=== PATIENT | male | born 1945 | race Caucasian/White ===

== ENCOUNTER 2016-06-30 17:10 | Emergency (ER) | payer MEDICARE ==
--- NOTE | 2016-06-30 19:18 | ED NURSING NOTES ---
Clinical Report - Nurses [facility] [place] [address] 06/30/2016 17:10 Patient: RENATA SOTO TRIAGE Triage time 17:19. Acuity: LEVEL 3. Alert. No acute distress. --17:29 Da Jules R.N. 17:18 06/30/16. BP: 138/92. HR: 98. RR: 20. O2 saturation: 92%. Temp: 98 F. Pain level now 03/24. --17:29 Da Jules R.N. Chief Complaint: (Back Pain, Leg Numbness, Urinary Incontinance). --19:39 Da Jules R.N. Weight: 99.7 kg estimated. Height/Length: 72 inches Estimated. BMI: 29.8. --17:28 Da Jules R.N. Medications AmLODIPine Besylate Oral 10 mg, daily. Gabapentin Oral 300 mg, 3x a day. Lisinopril Oral 40 mg, daily. Metoprolol Tartrate Oral 50 mg, 2 times daily. --17:27 Da Jules R.N. Allergies Acetaminophen. STEROIDS. --17:27 Da Jules R.N. History Arrived by EMS. Historian: patient. ( Patient with history of back pain and back surgery about a year ago. [facility] has back pain chronically and has no pain medicine. States he drinks Vodka now. [facility] had worsening back pain today. The EMT that brought him in states he thinks the patient needs more Vahe hours. Patient has very productive wet cough that he states he has had for over 1 year. 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 The patient has had a cough. SOCIAL HX: Former smoker. Alcohol use. History of drug use: marijuana. --17:29 Da Jules R.N. PHYSICAL ASSESSMENT GENERAL / NEURO / PSYCH: Alert. Oriented X 4. Appears in no acute distress. RESPIRATORY: Respirations not labored. Cough. SKIN: Skin is warm and dry. --17:29 Da Jules R.N. NURSING PROGRESS NOTES Patient gowned. Patient identifiers checked. Call light placed in reach. Side rails up. Bed placed in lowest position. --17:30 Da Jules R.N. ( Patient continues to complain of pain. States he can't feel his legs, but they hurt. Voided 300ml. Bladder scanned and patient has 240 ml in bladder). --18:17 Da Jules R.N. 18:36 06/30/2016 Site #1 started via IV in the left forearm with an 18g angiocath, with aseptic technique and good blood return; one attempt. Blood drawn: rainbow set. Labeled in the presence of the patient. Saline lock flushed with 10 mL saline. --19:01 Da Jules R.N. 18:52 06/30/2016 Started 125 mg of SOLU-MEDROL (MethylPREDNISolone Sodium Succ) IVPB in bag #1 20 mL; at 200 mL/hr over 5 minute(s) via site #1 --19:03 Da Jules R.N. 18:54 06/30/2016 Hydromorphone IVP 1 mg given over 2 minute(s) via site #1. --19:04 Da Jules R.N. 18:58 06/30/2016 Albuterol Neb TX Nebulizer 2 unit dose given. Given by the respiratory therapist. Allergies verified and confirmed 5 rights. --18:58 Geni Shen 19:04 06/30/2016 Hydromorphone IVP Response: symptoms are the same. --19:05 Da Jules R.N. 19:05 06/30/2016 SOLU-MEDROL IVPB Discontinued: completed. Total amount infused: 20 mL. --19:05 Da Jules R.N. 19:11 06/30/16. BP: 143/93. HR: 92. RR: 20. O2 saturation: 89%. Temp: 98.8 F. Pain level now 10/10. --19:13 Da Jules R.N. DISPOSITION / DISCHARGE Departure time: 19:30. Condition at departure: unchanged. Transferred to [facility]. Transported via ambulance by EMS and transport team. ( Report to [facility] Report to [facility] ER). Patient's personal items include, Clothes with patient. --19:31 Da Jules R.N. 19:34 06/30/16. BP: 145/92. HR: 90. RR: 20. O2 saturation: 92%. Temp: 98 F. Pain level now 03/24. --19:34 Da Jules R.N. Locked/Released at 06/30/2016 19:40 by Da Jules R.N.
--- NOTE | 2016-06-30 19:18 | ED ORDER SUMMARY ---
..... Patient: RENATA SOTO OrderSheet [facility] VisitID: [id number] [place] [address] 71y, M Registration Date/Time: 06/30/2016 ORDER SHEET Weight: 99.7 kg (estimated) Allergies: Acetaminophen, STEROIDS GENERAL ORDERS: CBC w Diff Urgent (18:20 06/30/2016 Josefa DIAS) (Ack 18:38 LTapper) (19:05 GMarshall R.N.) CMP Urgent (18:20 06/30/2016 Josefa DIAS) (Ack 18:38 LTapper) (19:05 GMarshall R.N.) UA-Culture if indicated Urgent (18:20 06/30/2016 Josefa DIAS) (Ack 18:38 LTapper) (19:05 GMarshall R.N.) MEDICATION ORDERS: Albuterol Neb Tx 5 mg (N) (18:06 06/30/2016 Josefa DIAS) (18:58 Jim) IV FLUIDS: Solu-MEDROL IV 125 mg (NOW) (18:06 06/30/2016 Josefa DIAS) (Ack 18:15 GMarshall R.N.) (19:03 GMarshall R.N.) HYDROmorphone IV 1 mg (HIGH ALERT MEDICATION, NOW) (19:03 06/30/2016 GMarshall R.N. verbal order read back to Josefa DIAS) (19:04 GMarshall R.N.) ORDER SHEET NOTES: [Electronically signed by Da Jules R.N. (19:40 06/30/2016)] [Electronically signed by Lauri Nichole MD (23:08 06/30/2016)] [Electronically locked/signed by Da Jules R.N. (19:40 06/30/2016)]
--- NOTE | 2016-06-30 19:18 | ED ORDER SUMMARY ---
..... Patient: RENATA SOTO OrderSheet [facility] VisitID: [id number] [place] [address] 71y, M Registration Date/Time: 06/30/2016 ORDER SHEET Weight: 99.7 kg (estimated) Allergies: Acetaminophen, STEROIDS GENERAL ORDERS: CBC w Diff Urgent (18:20 06/30/2016 Josefa DIAS) (Ack 18:38 LTapper) (19:05 GMarshall R.N.) CMP Urgent (18:20 06/30/2016 Josefa DIAS) (Ack 18:38 LTapper) (19:05 GMarshall R.N.) UA-Culture if indicated Urgent (18:20 06/30/2016 Josefa DIAS) (Ack 18:38 LTapper) (19:05 GMarshall R.N.) MEDICATION ORDERS: Albuterol Neb Tx 5 mg (N) (18:06 06/30/2016 Josefa DIAS) (18:58 Jim) IV FLUIDS: Solu-MEDROL IV 125 mg (NOW) (18:06 06/30/2016 Josefa DIAS) (Ack 18:15 GMarshall R.N.) (19:03 GMarshall R.N.) HYDROmorphone IV 1 mg (HIGH ALERT MEDICATION, NOW) (19:03 06/30/2016 GMarshall R.N. verbal order read back to Josefa DIAS) (19:04 GMarshall R.N.) ORDER SHEET NOTES: [Electronically signed by Da Jules R.N. (19:40 06/30/2016)] [Electronically signed by Lauri Nichole MD (23:08 06/30/2016)] [Electronically locked/signed by Da Jules R.N. (19:40 06/30/2016)]
--- NOTE | 2016-06-30 19:18 | ED CLINICAL REPORT ---
Clinical Report - Physicians/Mid Levels [facility] [address] [place] [address] 06/30/2016 17:10 Patient: [facility] [id number] Time Seen: 17:18. Arrived- By private vehicle. Historian- patient. HISTORY OF PRESENT ILLNESS Chief Complaint: LEGS NUMB. It is described as being moderate in degree (Pain is unchanged numbness is new.) and in the area of the lower lumbar spine. The quality is noted to be "pain" and similar to prior episodes. Onset was last night Couldn't get out of bed. Legs are numb. At 0100 today. Noticed it at 10 am. Incontinent of urine. Low back into both legs to knees. Pain is unchanged but numbness and weakness, inability to transfer and urinary incontinence are new. Bladder dysfunction. No bowel dysfunction or motor loss. Sensory loss. Additional history - Best usual function is transfer to wheel chair. Patient denies an injury. No other injury. Similar symptoms previously: None. REVIEW OF SYSTEMS No fever, chills, headache, sore throat or cough. No difficulty breathing, chest pain, abdominal pain, nausea or vomiting. No diarrhea. He has had difficulty with urination (incontinent of urine but not stool). All systems otherwise negative, except as recorded above. PAST HISTORY [place]/None Substance Abuse. Normal Exam. Medication Refill. Hip pain. Back Pain. Hypertension Surgeries: Lumbar - laminectomy Cervical fusion R Hip total hip x 3 for dislocation T&A. 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 ADDITIONAL NOTES The nursing notes have been reviewed. PHYSICAL EXAM Vital Signs: 06/30/2016 17:18 BP: 138/92. HR: 98. RR: 20. O2 saturation: 92%. Temp: 98 F. Appearance: Alert. Patient in mild distress. HEENT: Normal external inspection. Eyes: Pupils equal, round and reactive to light. Neck: Normal inspection. CVS: Heart sounds normal. Respiratory: Mildly decreased air movement bilaterally. No bilaterally decreased air movement diffusely. Moderate bilateral wheezes diffusely. No accessory muscle use. Abdomen: Normal inspection. Soft and nontender. Back: No tenderness. Extremities: Extremities nontender. Neuro: The patient has had weakness of the right leg (moderate), right foot (mild), left leg (moderate) and left foot (mild). Sensory deficit present. Altered position sense in the right and left leg. Reflex exam: right patellar 1+, left patellar 1+, right Achilles 0 and left Achilles 0. No Babinski reflex. LABS, X-RAYS, AND EKG X-Rays: The X-rays were independently viewed by me. PROGRESS AND PROCEDURES Course of Care: 17:59 06/30/16. Call out to the ED at [place]. Needs emergent MRI to rule out neurosurgical emergency. Will attempt to transfer. 18:20 06/30/16. Spoke with Dr Da Real [facility] ED and Hospital Backend Tester Elizabeth KIMBALL who will accept the patient in ED to ED transfer. I cannot perform MRI here. 23:08. Critical care performed (45 minutes). Time includes: direct patient care, patient reassessment, interpretation of data, review of patient's medical records, medical consultation and documentation of patient care- see progress notes. Disposition: Transferred. CLINICAL IMPRESSION ACUTE BILATERAL LEG NUMBNESS/WEAKNESS WITH URINARY INCONTINENCE BACK PAIN. (Electronically signed by Lauri Nichole MD 06/30/2016 23:08) Addenda for RENATA SOTO VisitID: [id number] Date: 06/30/2016 06/30/2016 23:06 Faxed a revised chart to the [facility] ED. The initial chart incorrectly identified a fall and rib fractures. (Electronically signed by Lauri Nichole MD - 06/30/2016 23:06)
--- NOTE | 2016-06-30 19:18 | ED NURSING NOTES ---
Clinical Report - Nurses [facility] [place] [address] 06/30/2016 17:10 Patient: RENATA SOTO TRIAGE Triage time 17:19. Acuity: LEVEL 3. Alert. No acute distress. --17:29 Da Jules R.N. 17:18 06/30/16. BP: 138/92. HR: 98. RR: 20. O2 saturation: 92%. Temp: 98 F. Pain level now 03/24. --17:29 Da Jules R.N. Chief Complaint: (Back Pain, Leg Numbness, Urinary Incontinance). --19:39 Da Jules R.N. Weight: 99.7 kg estimated. Height/Length: 72 inches Estimated. BMI: 29.8. --17:28 Da Jules R.N. Medications AmLODIPine Besylate Oral 10 mg, daily. Gabapentin Oral 300 mg, 3x a day. Lisinopril Oral 40 mg, daily. Metoprolol Tartrate Oral 50 mg, 2 times daily. --17:27 Da Jules R.N. Allergies Acetaminophen. STEROIDS. --17:27 Da Jules R.N. History Arrived by EMS. Historian: patient. ( Patient with history of back pain and back surgery about a year ago. [facility] has back pain chronically and has no pain medicine. States he drinks Vodka now. [facility] had worsening back pain today. The EMT that brought him in states he thinks the patient needs more Vahe hours. Patient has very productive wet cough that he states he has had for over 1 year. 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 The patient has had a cough. SOCIAL HX: Former smoker. Alcohol use. History of drug use: marijuana. --17:29 Da Jules R.N. PHYSICAL ASSESSMENT GENERAL / NEURO / PSYCH: Alert. Oriented X 4. Appears in no acute distress. RESPIRATORY: Respirations not labored. Cough. SKIN: Skin is warm and dry. --17:29 Da Jules R.N. NURSING PROGRESS NOTES Patient gowned. Patient identifiers checked. Call light placed in reach. Side rails up. Bed placed in lowest position. --17:30 Da Jules R.N. ( Patient continues to complain of pain. States he can't feel his legs, but they hurt. Voided 300ml. Bladder scanned and patient has 240 ml in bladder). --18:17 Da Jules R.N. 18:36 06/30/2016 Site #1 started via IV in the left forearm with an 18g angiocath, with aseptic technique and good blood return; one attempt. Blood drawn: rainbow set. Labeled in the presence of the patient. Saline lock flushed with 10 mL saline. --19:01 Da Jules R.N. 18:52 06/30/2016 Started 125 mg of SOLU-MEDROL (MethylPREDNISolone Sodium Succ) IVPB in bag #1 20 mL; at 200 mL/hr over 5 minute(s) via site #1 --19:03 Da Jules R.N. 18:54 06/30/2016 Hydromorphone IVP 1 mg given over 2 minute(s) via site #1. --19:04 Da Jules R.N. 18:58 06/30/2016 Albuterol Neb TX Nebulizer 2 unit dose given. Given by the respiratory therapist. Allergies verified and confirmed 5 rights. --18:58 Geni Shen 19:04 06/30/2016 Hydromorphone IVP Response: symptoms are the same. --19:05 Da Jules R.N. 19:05 06/30/2016 SOLU-MEDROL IVPB Discontinued: completed. Total amount infused: 20 mL. --19:05 Da Jules R.N. 19:11 06/30/16. BP: 143/93. HR: 92. RR: 20. O2 saturation: 89%. Temp: 98.8 F. Pain level now 10/10. --19:13 Da Jules R.N. DISPOSITION / DISCHARGE Departure time: 19:30. Condition at departure: unchanged. Transferred to [facility]. Transported via ambulance by EMS and transport team. ( Report to [facility] Report to [facility] ER). Patient's personal items include, Clothes with patient. --19:31 Da Jules R.N. 19:34 06/30/16. BP: 145/92. HR: 90. RR: 20. O2 saturation: 92%. Temp: 98 F. Pain level now 03/24. --19:34 Da Jules R.N. Locked/Released at 06/30/2016 19:40 by Da Jules R.N.
--- NOTE | 2016-06-30 19:18 | ED CLINICAL REPORT ---
Clinical Report - Physicians/Mid Levels [facility] [address] [place] [address] 06/30/2016 17:10 [id number] Time Seen: 17:18. Arrived- By private vehicle. Historian- patient. HISTORY OF PRESENT ILLNESS Chief Complaint: LEGS NUMB. It is described as being moderate in degree (Pain is unchanged numbness is new.) and in the area of the lower lumbar spine. The quality is noted to be "pain" and similar to prior episodes. Onset was last night Couldn't get out of bed. Legs are numb. At 0100 today. Noticed it at 10 am. Incontinent of urine. Low back into both legs to knees. Pain is unchanged but numbness and weakness, inability to transfer and urinary incontinence are new. Bladder dysfunction. No bowel dysfunction or motor loss. Sensory loss. Additional history - Best usual function is transfer to wheel chair. Patient denies an injury. No other injury. Similar symptoms previously: None. REVIEW OF SYSTEMS No fever, chills, headache, sore throat or cough. No difficulty breathing, chest pain, abdominal pain, nausea or vomiting. No diarrhea. He has had difficulty with urination (incontinent of urine but not stool). All systems otherwise negative, except as recorded above. PAST HISTORY [place]/None Substance Abuse. Normal Exam. Medication Refill. Hip pain. Back Pain. Hypertension Surgeries: Lumbar - laminectomy Cervical fusion R Hip total hip x 3 for dislocation T&A. 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 ADDITIONAL NOTES The nursing notes have been reviewed. PHYSICAL EXAM Vital Signs: 06/30/2016 17:18 BP: 138/92. HR: 98. RR: 20. O2 saturation: 92%. Temp: 98 F. Appearance: Alert. Patient in mild distress. HEENT: Normal external inspection. Eyes: Pupils equal, round and reactive to light. Neck: Normal inspection. CVS: Heart sounds normal. Respiratory: Mildly decreased air movement bilaterally. No bilaterally decreased air movement diffusely. Moderate bilateral wheezes diffusely. No accessory muscle use. Abdomen: Normal inspection. Soft and nontender. Back: No tenderness. Extremities: Extremities nontender. Neuro: The patient has had weakness of the right leg (moderate), right foot (mild), left leg (moderate) and left foot (mild). Sensory deficit present. Altered position sense in the right and left leg. Reflex exam: right patellar 1+, left patellar 1+, right Achilles 0 and left Achilles 0. No Babinski reflex. LABS, X-RAYS, AND EKG X-Rays: The X-rays were independently viewed by me. PROGRESS AND PROCEDURES Course of Care: 17:59 06/30/16. Call out to the ED at [place]. Needs emergent MRI to rule out neurosurgical emergency. Will attempt to transfer. 18:20 06/30/16. Spoke with Dr Da Real [facility] ED and Hospital Moving Worker Elizabeth KIMBALL who will accept the patient in ED to ED transfer. I cannot perform MRI here. 23:08. Critical care performed (45 minutes). Time includes: direct patient care, patient reassessment, interpretation of data, review of patient's medical records, medical consultation and documentation of patient care- see progress notes. Disposition: Transferred. CLINICAL IMPRESSION ACUTE BILATERAL LEG NUMBNESS/WEAKNESS WITH URINARY INCONTINENCE BACK PAIN. (Electronically signed by Lauri Nichole MD 06/30/2016 23:08) Addenda for RENATA SOTO VisitID: [id number] Date: 06/30/2016 06/30/2016 23:06 Faxed a revised chart to the [facility] ED. The initial chart incorrectly identified a fall and rib fractures. (Electronically signed by Lauri Nichole MD - 06/30/2016 23:06)
--- NOTE | 2016-06-30 23:08 | ED MED RECONCILIATION SUMMARY ---
Patient: RENATA SOTO Medication Reconciliation Report [facility] VisitID: [id number] [address] [place] [address] 71y, M Registration Date/Time: 06/30/2016 Weight: 99.7 kg Height/Length: 72 in. BMI: 29.8 ALLERGIES: Acetaminophen, STEROIDS The patient's Home Medications are listed below: THE FOLLOWING MEDICATIONS NEED TO BE RECONCILED: AmLODIPine Besylate Oral 10 mg, daily Gabapentin Oral 300 mg, 3x a day Lisinopril Oral 40 mg, daily Metoprolol Tartrate Oral 50 mg, 2 times daily The source(s) of the original Home Medication information: Not obtained. The following Medications were given to the patient in the Emergency Department: Albuterol [Neb Tx] Neb TX 2 unit dose, administered: 06/30/2016 6:58:00 PM SOLU-MEDROL [IVPB] IVPB bolus 0, then 125 mg 200 mL/hr, administered: 06/30/2016 6:52:00 PM Hydromorphone [IVP] IVP 1 mg, administered: 06/30/2016 6:54:00 PM The following Medications were prescribed to the patient: None.
--- NOTE | 2016-06-30 23:08 | ED MAR SUMMARY ---
..... Medication Administration Record [facility] [address] [place] [address] Patient: RENATA SOTO Visit ID: [id number] 71y, M Weight: 99.7 kg Height/Length: 72 in BMI: 29.8 ALLERGIES: Acetaminophen, STEROIDS Start 18:52 06/30/2016 Da Jules R.N., Stop 19:05 06/30/2016 Da Jules R.N. Medication Administered: SOLU-MEDROL [IVPB] (METHYLPREDNISOLONE SODIUM SUCC), Dose: 125 mg IVPB over 5 minute(s), Rate: 200 mL/hr, Dispensed: 20 mL bag, Site: #1 left forearm. Medication Ordered: Solu-MEDROL IV 125 mg (NOW). Given 18:54 06/30/2016 Da Jules R.N. Medication Administered: HYDROMORPHONE [IVP], Dose: 1 mg IVP over 2 minute(s), Site: #1 left forearm. Medication Ordered: HYDROmorphone IV 1 mg (HIGH ALERT MEDICATION, NOW). Given 18:58 06/30/2016 Geni Shen, Medication Administered: ALBUTEROL [NEB TX], Dose: 2 unit dose Nebulizer Neb TX. Medication Ordered: Albuterol Neb Tx 5 mg (N).
--- NOTE | 2016-06-30 23:08 | ED MAR SUMMARY ---
..... Medication Administration Record [facility] [address] [place] [address] Patient: RENATA SOTO Visit ID: [id number] 71y, M Weight: 99.7 kg Height/Length: 72 in BMI: 29.8 ALLERGIES: Acetaminophen, STEROIDS Start 18:52 06/30/2016 Da Jules R.N., Stop 19:05 06/30/2016 Da Jules R.N. Medication Administered: SOLU-MEDROL [IVPB] (METHYLPREDNISOLONE SODIUM SUCC), Dose: 125 mg IVPB over 5 minute(s), Rate: 200 mL/hr, Dispensed: 20 mL bag, Site: #1 left forearm. Medication Ordered: Solu-MEDROL IV 125 mg (NOW). Given 18:54 06/30/2016 Da Jules R.N. Medication Administered: HYDROMORPHONE [IVP], Dose: 1 mg IVP over 2 minute(s), Site: #1 left forearm. Medication Ordered: HYDROmorphone IV 1 mg (HIGH ALERT MEDICATION, NOW). Given 18:58 06/30/2016 Geni Shen, Medication Administered: ALBUTEROL [NEB TX], Dose: 2 unit dose Nebulizer Neb TX. Medication Ordered: Albuterol Neb Tx 5 mg (N).
--- NOTE | 2016-06-30 23:08 | ED DISCHARGE INSTRUCTIONS ---
Patient: RENATA SOTO General Instructions [facility] VisitID: [id number] [address] [place] [address] 71y, M Registration Date/Time: 06/30/2016 ACUTE BILATERAL LEG NUMBNESS/WEAKNESS WITH URINARY INCONTINENCE BACK PAIN. (Electronically signed by Lauri Nichole MD 06/30/2016 23:08)
--- NOTE | 2016-06-30 23:08 | ED DISCHARGE INSTRUCTIONS ---
Patient: RENATA SOTO General Instructions [facility] VisitID: [id number] [address] [place] [address] 71y, M Registration Date/Time: 06/30/2016 ACUTE BILATERAL LEG NUMBNESS/WEAKNESS WITH URINARY INCONTINENCE BACK PAIN. (Electronically signed by Lauri Nichole MD 06/30/2016 23:08)
--- NOTE | 2016-06-30 23:08 | ED MED RECONCILIATION SUMMARY ---
Patient: RENATA SOTO Medication Reconciliation Report [facility] VisitID: [id number] [address] [place] [address] 71y, M Registration Date/Time: 06/30/2016 Weight: 99.7 kg Height/Length: 72 in. BMI: 29.8 ALLERGIES: Acetaminophen, STEROIDS The patient's Home Medications are listed below: THE FOLLOWING MEDICATIONS NEED TO BE RECONCILED: AmLODIPine Besylate Oral 10 mg, daily Gabapentin Oral 300 mg, 3x a day Lisinopril Oral 40 mg, daily Metoprolol Tartrate Oral 50 mg, 2 times daily The source(s) of the original Home Medication information: Not obtained. The following Medications were given to the patient in the Emergency Department: Albuterol [Neb Tx] Neb TX 2 unit dose, administered: 06/30/2016 6:58:00 PM SOLU-MEDROL [IVPB] IVPB bolus 0, then 125 mg 200 mL/hr, administered: 06/30/2016 6:52:00 PM Hydromorphone [IVP] IVP 1 mg, administered: 06/30/2016 6:54:00 PM The following Medications were prescribed to the patient: None.
== END 2016-06-30 19:39 | disposition short-term general hospital (02) ==
LOC: ED SRH 17:10
DX: R20.0 Anesthesia of skin (principal); R53.1 Weakness; R32 Unspecified urinary incontinence; M54.9 Dorsalgia, unspecified; I10 Essential (primary) hypertension
CPT/HCPCS: 90004; 90100; 95059